=== PATIENT | female | born 1980 | race Caucasian/White ===

== ENCOUNTER 2018-04-26 17:56 | Inpatient (IN) | payer OTHER ==
[2018-04-26] MEDS ORDERED: LORAZEPAM 2 MG INJ IV (19:00)
[2018-04-26] MEDS ORDERED: ALBUTEROL/IPRATROPIUM (NEB) 3 ML AMP HHN (19:00)
[2018-04-26] MEDS ORDERED: NITROGLYCERIN (SL) 0.4 MG TAB SL (19:00)
[2018-04-26] MEDS ORDERED: DOCUSATE SODIUM 100 MG CAP PO (19:00)
[2018-04-26] MEDS ORDERED: MAGNESIUM HYDROXIDE 30ML CUP PO (19:00)
[2018-04-26] MEDS ORDERED: HYDROCODONE/APAP (5/325) TAB PO (19:00)
[2018-04-26] MEDS ORDERED: NACL 0.9% 3 ML SYG IV (19:00)
[2018-04-26] MEDS: morphine 4 MG/ML VIAL IV (19:16)
[2018-04-26] MEDS: SOD CHLORIDE 0.9% 1,000 ML IV (19:17)
[2018-04-26] MEDS: CEFTRIAXONE 1 GM/50 ML (PMX) 50 ML IVPB (19:19)
[2018-04-26 20:39] LABS: FREE T4 (FREE THYROXINE) 0.95 ng/dl (0.79-2.35)
[2018-04-27] MEDS: morphine 4 MG/ML VIAL IV (01:44)
[2018-04-27 05:14] LABS: ADD MAN DIFF? NO
[2018-04-27 05:41] LABS: BASOPHILS % 0.3 % (0.0-2.0); EOSINOPHILS % 0.2 % (0.0-7.0); HEMOGLOBIN 11.8 g/dl (12.0-16.0); LYMPHOCYTES # 1.5 10^3/ul (0.8-2.9); LYMPHOCYTES % 13.5 % (15.0-51.0); MEAN CORPUSCULAR HEMOGLOBIN 29.3 pg (29.0-33.0); MEAN CORPUSCULAR HGB CONC 33.7 g/dl (32.0-37.0); MEAN CORPUSCULAR VOLUME 86.8 fl (82.0-101.0); MEAN PLATELET VOLUME 9.7 fl (7.4-10.4); MONOCYTE # 0.5 10^3/ul (0.3-0.9); MONOCYTES % 4.6 % (0.0-11.0); NEUTROPHIL # 8.9 10^3/ul (1.6-7.5); PLATELET COUNT 283 10^3/UL (140-415); RED BLOOD COUNT 4.03 10^6/ul (4.20-5.40); RED CELL DISTRIBUTION WIDTH 13.2 % (11.5-14.5)
[2018-04-27 05:51] LABS: HEMOGLOBIN A1C 5.8 % (0-5.9)
[2018-04-27 06:03] LABS: ANION GAP 8 (5-13); BLOOD UREA NITROGEN 12 mg/dl (7-20); CALCIUM 8.4 mg/dl (8.4-10.2); CARBON DIOXIDE 26 mmol/L (21-31); CHLORIDE 103 mmol/L (97-110); CHOL/HDL RATIO 2.9 RATIO; CREATININE 1.48 mg/dl (0.44-1.00); Estimated GFR 40 mL/min (>60); GLUCOSE 104 mg/dl (70-220); HDL CHOLESTEROL 41 mg/dl (34-82); LDL CHOLESTEROL,CALCULATED 63 mg/dl; MAGNESIUM 2.1 mg/dl (1.7-2.5); PHOSPHORUS 2.4 mg/dl (2.5-4.9); POTASSIUM 4.3 mmol/L (3.5-5.1); SODIUM 137 mmol/L (135-144); TRIGLYCERIDES 82 mg/dl (0-149)
[2018-04-27] MEDS: ONDANSETRON 4 MG INJ IV (06:37)
[2018-04-27] MEDS: SOD CHLORIDE 0.9% 1,000 ML IV ×3 (06:37→22:10)
[2018-04-27 06:57] LABS: CHOLESTEROL 120 mg/dl (100-200)
[2018-04-27] MEDS: ACETAMINOPHEN 325 MG TAB PO ×3 (07:54→20:31)
[2018-04-27] MEDS: POTASSIUM PHOSPHATE 20 MEQ in SOD CHLORIDE 0.9% 250 ML IVPB (14:24)
[2018-04-27 14:36] LABS: ADD UMIC YES; UR ASCORBIC ACID NEGATIVE (NEGATIVE); UR BILIRUBIN (Dip) NEGATIVE (NEGATIVE); UR BLOOD (Dip) 2+ mg/dL (NEGATIVE); UR CLARITY CLEAR (CLEAR); UR COLOR YELLOW (YELLOW); UR GLUCOSE (Dip) NEGATIVE (NEGATIVE); UR KETONES (Dip) 1+ mg/dL (NEGATIVE); UR LEUKOCYTE ESTERASE (Dip) NEGATIVE Leu/ul (NEGATIVE); UR MUCUS FEW /HPF (NONE SEEN); UR NITRITE (Dip) NEGATIVE (NEGATIVE); UR RBC 8 /HPF (0-5); UR SPECIFIC GRAVITY (Dip) 1.017 (1.003-1.030); UR TOTAL PROTEIN (Dip) NEGATIVE (NEGATIVE); UR UROBILINOGEN (Dip) NEGATIVE (NEGATIVE); UR WBC 11 /HPF (0-5)
[2018-04-27] MEDS: METOCLOPRAMIDE 10 MG INJ IV (19:38)
[2018-04-27] MEDS: CEFTRIAXONE 1 GM/50 ML (PMX) 50 ML IVPB (19:39)
[2018-04-28] MEDS: SOD CHLORIDE 0.9% 1,000 ML IV (00:35)
[2018-04-28 05:10] LABS: ADD MAN DIFF? NO
[2018-04-28 05:16] LABS: BASOPHILS % 0.4 % (0.0-2.0); EOSINOPHILS % 0.3 % (0.0-7.0); HEMATOCRIT 34.5 % (37.0-47.0); HEMOGLOBIN 11.6 g/dl (12.0-16.0); LYMPHOCYTES # 1.1 10^3/ul (0.8-2.9); LYMPHOCYTES % 15.8 % (15.0-51.0); MEAN CORPUSCULAR HEMOGLOBIN 28.6 pg (29.0-33.0); MEAN CORPUSCULAR HGB CONC 33.6 g/dl (32.0-37.0); MEAN CORPUSCULAR VOLUME 85.2 fl (82.0-101.0); MEAN PLATELET VOLUME 9.4 fl (7.4-10.4); MONOCYTE # 0.5 10^3/ul (0.3-0.9); MONOCYTES % 6.6 % (0.0-11.0); NEUTROPHIL # 5.2 10^3/ul (1.6-7.5); NEUTROPHILS % 76.6 % (39.0-77.0); PLATELET COUNT 259 10^3/UL (140-415); RED BLOOD COUNT 4.05 10^6/ul (4.20-5.40); RED CELL DISTRIBUTION WIDTH 13.1 % (11.5-14.5)
[2018-04-28 05:16] LABS: WHITE BLOOD COUNT 6.8 10^3/ul (4.8-10.8)
[2018-04-28 05:42] LABS: ANION GAP 7 (5-13); BLOOD UREA NITROGEN 10 mg/dl (7-20); CALCIUM 8.1 mg/dl (8.4-10.2); CARBON DIOXIDE 25 mmol/L (21-31); CHLORIDE 103 mmol/L (97-110); Estimated GFR > 60 mL/min (>60); GLUCOSE 114 mg/dl (70-220); POTASSIUM 3.8 mmol/L (3.5-5.1); SODIUM 135 mmol/L (135-144)
[2018-04-28 05:44] LABS: CREATININE 0.83 mg/dl (0.44-1.00)
[2018-04-28] MEDS: METOCLOPRAMIDE 10 MG INJ IV (09:55)
[2018-04-28] MEDS: ACETAMINOPHEN 325 MG TAB PO (09:56)
== END 2018-04-28 12:30 | disposition home or self-care (01) | DRG 832 ==
LOC: MS1 17:56
PROVIDERS: Hospitalist
DX: O23.01 Infections of kidney in pregnancy, first trimester (principal); O16.1 Unspecified maternal hypertension, first trimester; N13.6 Pyonephrosis; B96.20 Unspecified Escherichia coli [E. coli] as the cause of diseases classified elsewhere; B95.2 Enterococcus as the cause of diseases classified elsewhere; Z3A.01 Less than 8 weeks gestation of pregnancy
CPT/HCPCS: 80048; 80061; 81001; 83036; 83735; 84100; 84439; 84443; 84702; 85025; 87086